=== PATIENT | male | born 1940 | race African-American/Black ===

== ENCOUNTER 2020-06-04 17:50 | Emergency (ER) | payer MEDICARE, MEDICAID ==
[~2020-06-04] VITALS: Ht 177.8 cm; Wt 113.0 kg
[2020-06-04] MEDS ORDERED: ACETAMINOPHEN 325MG TABLET PO STA (20:23)
[2020-06-04 21:19] LABS: BASOPHILS % 0.2 % (0.0-2.0); EOSINOPHILS % 0.2 % (0.0-5.0); HEMATOCRIT. 42.6 % (42.0-52.0); HEMOGLOBIN. 14.2 g/dL (14.0-18.0); LYMPHOCYTES % 11.2 % (20.0-50.0); MEAN CORPUSCULAR HEMOGLOBIN 28.8 pg (28.0-32.0); MEAN CORPUSCULAR VOLUME 86.7 fL (80.0-94.0); MEAN PLATELET VOLUME 8.5 fl (7.4-10.4); MONOCYTES % 14.4 % (2.0-8.0); PLATELET 236 x1000/uL (130-400); RED BLOOD CELL COUNT 4.91 mill/uL (4.7-6.1); RED CELL DISTRIBUTION WIDTH 14.3 % (11.6-14.6)
[2020-06-04 21:24] LABS: CHLORIDE 105 mEq/L (98-107)
[2020-06-05 05:57] VITALS: BP 168/93
== END 2020-06-05 05:59 | disposition home or self-care (01) ==
LOC: ER 17:50
DX: M48.56XA Collapsed vertebra, not elsewhere classified, lumbar region, initial encounter for fracture (principal); R03.0 Elevated blood-pressure reading, without diagnosis of hypertension; Z85.038 Personal history of other malignant neoplasm of large intestine
CPT/HCPCS: 36415; 72131; 80048; 85025; 99284